=== PATIENT | male | born 1970 | race Caucasian/White ===

== ENCOUNTER 2022-09-13 13:36 | Emergency (ER) | payer BC, SELFPAY ==
[2022-09-13 13:38] VITALS: BP 143/75; PULSE 76; RESP 18; TEMP 36.7; O2SAT 98; BMI 25.1
--- NOTE | 2022-09-13 13:47 | ED.CHESTPAIN ---
HPI - Chest Pain General Chief Complaint: Chest Pain Stated Complaint: Heart skipping, tightness in chest Related Data Allergies Allergy/AdvReac Type Severity Reaction Status Date / Time tetracycline AdvReac Severe Anaphylaxis Verified 09/13/22 13:44 Exam Const Vital Signs, click to edit/add: Vital Signs - 24 hr 09/13/22 13:38 Temperature 98.0 F Pulse Rate [Pulse Oximeter] 76 Respiratory Rate 18 Blood Pressure [Right Upper Arm] 143/75 H Pulse Oximetry 98 Oxygen Delivery Method Room Air Course Vital Signs Vital signs: Initial Vital Signs Temperature 98.0 F 09/13/22 13:38 Temperature Source Temporal Artery Scan 09/13/22 13:38 Pulse Rate 76 09/13/22 13:38 Pulse Rhythm 09/13/22 13:38 Pulse Strength 3+ Normal 09/13/22 13:38 Respiratory Rate 18 09/13/22 13:38 Blood Pressure 143/75 H 09/13/22 13:38 Blood Pressure Mean 97 09/13/22 13:38 Blood Pressure Position Sitting 09/13/22 13:38 Pulse Oximetry 98 09/13/22 13:38 Oxygen Delivery Method 09/13/22 13:38 Vital Signs Temperature 98.0 F 09/13/22 13:38 Pulse Rate 76 09/13/22 13:38 Respiratory Rate 18 09/13/22 13:38 Blood Pressure 143/75 H 09/13/22 13:38 Pulse Oximetry 98 09/13/22 13:38 Oxygen Delivery Method 09/13/22 13:38 Temperature 98.0 F 09/13/22 13:38 Pulse Rate 76 09/13/22 13:38 Respiratory Rate 18 09/13/22 13:38 Blood Pressure 143/75 H 09/13/22 13:38 Pulse Oximetry 98 09/13/22 13:38 Oxygen Delivery Method 09/13/22 13:38 Discharge Plan Discharge Follow Up/Referrals: Arthur Cadena MD [Primary Care Provider] -
[2022-09-13 14:24] VITALS: PULSE 67; O2SAT 95
--- NOTE | 2022-09-13 14:26 | ED.CHESTPAIN ---
HPI - Chest Pain General Chief Complaint: Chest Pain Stated Complaint: Heart skipping, tightness in chest Time Seen by Provider: 09/13/22 13:48 History of Present Illness HPI narrative: 52-year-old man presenting to the emergency department with concern of fluttering and chest pressure that he feels in the mid sternum area. Happened this morning and just prior to arrival here in the emergency department. Self-limiting. Not associated with lightheadedness or shortness of breath or dizziness. Discomfort is not pleuritic. No leg pain or swelling. Had a longer bout of this 4 evenings ago around bedtime. Admittedly he will feel these fluttering more at rest or in bed. This has been going on for months. Had discussed with primary care provider potentially placing some sort of a monitor but this has not been done yet. No illness otherwise. 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 Does not report any exercise intolerance. Did a lot of shoveling today without symptoms or difficulty. No first-degree relatives with cardiovascular disease nor is there any family history of dysrhythmia. Related Data Allergies Allergy/AdvReac Type Severity Reaction Status Date / Time tetracycline AdvReac Severe Anaphylaxis Verified 09/13/22 13:44 Review of Systems Status of ROS Reports: 10 or more systems reviewed and unremarkable except as noted in History and below PFSH PFS Social History Smoking Status: Never smoker Do you use any of these nicotine containing products: None Second hand tobacco smoke exposure: No How often do you have a drink containing alcohol: 2-3 times a week How many standard drinks containing alcohol do you have on a typical day: 1 or 2 How often do you have six or more drinks on one occasion: Never AUDIT-C Alcohol total score: 3 Non-prescribed substance use: denies use service: No Exam Narrative Exam Narrative: Pleasant. NAD. Skin is warm and dry. CN 2 through 12 appear intact. Moving extremities without difficulty. Well perfused. Breathing easily. Lungs appear to be clear. Extremities are without edema. Heart with regular rate and rhythm. Const Vital Signs, click to edit/add: Vital Signs - 24 hr 09/13/22 13:38 09/13/22 14:24 Temperature 98.0 F Pulse Rate 67 Pulse Rate [Pulse Oximeter] 76 Respiratory Rate 18 Blood Pressure [Right Upper Arm] 143/75 H Pulse Oximetry 98 95 Oxygen Delivery Method Room Air Documenting provider has reviewed patient's vital signs: yes Course Vital Signs Vital signs: Initial Vital Signs Temperature 98.0 F 09/13/22 13:38 Temperature Source Temporal Artery Scan 09/13/22 13:38 Pulse Rate 76 09/13/22 13:38 Pulse Rhythm 09/13/22 13:38 Pulse Strength 3+ Normal 09/13/22 13:38 Respiratory Rate 18 09/13/22 13:38 Blood Pressure 143/75 H 09/13/22 13:38 Blood Pressure Mean 97 09/13/22 13:38 Blood Pressure Position Sitting 09/13/22 13:38 Pulse Oximetry 98 09/13/22 13:38 Oxygen Delivery Method 09/13/22 13:38 Vital Signs Temperature 98.0 F 09/13/22 13:38 Pulse Rate 76 09/13/22 13:38 Respiratory Rate 18 09/13/22 13:38 Blood Pressure 143/75 H 09/13/22 13:38 Pulse Oximetry 98 09/13/22 13:38 Oxygen Delivery Method 09/13/22 13:38 Temperature 98.0 F 09/13/22 13:38 Pulse Rate 67 09/13/22 14:24 Respiratory Rate 18 09/13/22 13:38 Blood Pressure 143/75 H 09/13/22 13:38 Pulse Oximetry 95 09/13/22 14:24 Oxygen Delivery Method 09/13/22 13:38 MDM - Chest Pain MDM Narrative Medical decision making narrative: During period of observation on the monitor, maintained regular rhythm. Does sound to be more of a rhythm matter. This fluttering as described I think would be rather typical for premature actual contractions. Otherwise sinus tachycardia? aflutter/fib I think less likely? There are no symptoms under more physical stress. Low risk for ischemic heart disease. Discussed options including work up here in the emergency department. He plans to follow up in primary care anticipating longer-term monitor placement. I think that's reasonable. Without evidence of arrhythmia, I think ok to also wait with lab draws. ECG Data Attestation: I personally reviewed and interpreted this ECG as follows: (Normal sinus rate of 74) Discharge Plan Discharge Clinical Impression: Fluttering sensation of heart, Chest pressure Patient Disposition: Home w/ Parent or Adult Condition: Stable Instructions: Chest Pain (ED) Additional Instructions: It is important to focus on hydration as discussed. Do try to drink 2-3 L of water daily. Take care with your stimulant intake; caffeine, cold medicines containing pseudoephedrine or phenylephrine, other herbal products, alcohol can all contribute to arrhythmias. It does seem like you are having some arrhythmia. Likely premature atrial or premature ventricular contractions. As discussed we have not proven any of this. Further workup would be required but I think it is okay to do that as an outpatient and you have already discussed this matter with your primary care provider. I would call or message your primary care provider for the next step in evaluation. Follow Up/Referrals: Arthur Cadena MD [Primary Care Provider] - Stand Alone Forms: Interactive Project Info Instructions
== END 2022-09-13 14:38 | disposition home or self-care (01) ==
PROVIDERS: Emergency Provider Family Medicine; PCP Family Medicine
DX: R07.89 Other chest pain (principal); I49.8 Other specified cardiac arrhythmias
CPT/HCPCS: 93005; 99283